=== PATIENT | male | born 1990 | race Caucasian/White ===

== ENCOUNTER → 2018-11-12 | Day surgery (SDC) | payer OTHER ==
[2018-11-09 09:47] LABS: ALANINE AMINOTRANSFERASE 31 IU/L (0-55); ALBUMIN 4.3 g/dL (3.5-5.0); ALBUMIN/GLOBULIN RATIO 1.5 (0.8-2.0); ALKALINE PHOSPHATASE 62 IU/L (40-150); ANION GAP 12.1 mmol/L (8-16); BLOOD UREA NITROGEN 14 mg/dL (7-26); BUN/CREATININE RATIO 12 (6-25); CALCIUM 9.8 mg/dL (8.4-10.2); CARBON DIOXIDE 28 mmol/L (22-29); CHLORIDE 103 mmol/L (98-107); CREATININE, SERUM 1.15 mg/dL (0.72-1.25); EST GLOMERULAR FILTRATION RATE > 60 ML/MIN (60-); GLUCOSE 91 mg/dL (74-118); POTASSIUM 4.1 mmol/L (3.5-5.1); SODIUM 139 mmol/L (136-145)
[2018-11-09 09:51] LABS: BASOPHILS # (AUTO) 0.1 (0.0-0.1); BASOPHILS % 1.3 % (0.0-1.0); EOSINOPHILS # (AUTO) 0.8 (0.0-0.4); EOSINOPHILS % 12.6 % (0.0-6.0); HEMATOCRIT 43.6 % (38.2-49.6); HEMOGLOBIN 15.2 g/dL (14.0-18.0); LYMPHOCYTES # (AUTO) 2.2 (1.0-3.2); LYMPHOCYTES % 35.7 % (18.0-39.1); MEAN CORPUSCULAR HEMOGLOBIN 29.7 pg (28-32); MEAN CORPUSCULAR HGB CONC 34.9 g/dL (31-35); MEAN CORPUSCULAR VOLUME 85.2 fL (81-99); MONOCYTES # (AUTO) 0.6 (0.2-0.8); MONOCYTES % 10.2 % (4.4-11.3); NEUTROPHILS # (AUTO) 2.5 (2.1-6.9); NEUTROPHILS % 39.9 % (38.7-80.0); PLATELET COUNT 260 x10e3/uL (140-360); RED BLOOD COUNT 5.12 x10e6/uL (4.3-5.7); RED CELL DISTRIBUTION WIDTH 11.9 % (11.7-14.4)
[2018-11-12] VITALS (9 sets, daily range): BP systolic 114–134; BP diastolic 57–87
[~2018-11-12] VITALS: Ht 170.2 cm; Wt 77.1 kg
[~2018-11-12] MED LIST: ALPRAZOLAM 0.5 MG TAB ONE; DIPHENHYDRAMINE HCL 25 MG CAP ONE; FENTANYL CITRATE/PF 100MCG/2 ML INJ ONE; FLONASE; HEPARIN SOD/SOD CHLORIDE 2,000 ML ONE; IOPAMIDOL 370 MG/ML 200 ML INFUS..BTL INJ ONE; LIDOCAINE HCL 2% LOCAL 20 ML VIAL ONE; METOPROLOL TARTRATE INJ 1 MG/ML VIAL ONE; MIDAZOLAM HCL 2 MG/2 ML VIAL ONE; SODIUM CHLORIDE 0.9% 1000ML 1,000 ML ONE; VERAPAMIL HCL 2.5 MG/ML 2 ML VIAL ONE; XYZAL5 MG PO
--- OUTSIDE RECORDS SUMMARY | 2018-11-12 09:58 | XMS REPORT | Summary of Care ---
Author Author [facility] Care [facility] Organization [facility] Address Unknown Phone Unavailable Encounter HQ Jess(FIN) [id number] Date(s): 03/26/18 - 03/26/18 [facility] [address] [facility] [address] [place] [address]- Discharge Disposition: Home or Self Care Attending Physician: Elvi Scruggs MD Vital Signs Most recent to 1 oldest [Reference Range]: Height 170.18 cm (03/26/18 12:33 PM) Temperature Oral 98.0 DegF [96.4-99.1 DegF] (03/26/18 12:33 PM) Blood Pressure 130/79 mmHg [90-140/60-90 mmHg] (03/26/18 12:33 PM) Peripheral Pulse 60 bpm Rate [60-100 bpm] (03/26/18 12:33 PM) Weight 75 kg (03/26/18 12:33 PM) Body Mass Index 25.9 m2 (03/26/18 12:33 PM) Problem List Condition Effective Dates Status Health Status Informant Laceration of right Active middle finger(Confirmed) Encounter for Active preventive health examination(Confirme d) Allergies, Adverse Reactions, Alerts No Known Medication Allergies Medications Keflex 500 mg oral capsule 500 mg=1 cap, PO, TID, X 8 day, # 24 cap, 0 Refill(s), Pharmacy: [facility]/pharmacy #[id number] Start Date: 03/26/18 Stop Date: 04/03/18 Status: Completed Results No data available for this section Immunizations Given and Recorded Vaccine Date Status Refusal Reason diphtheria/pertussis, acel/tetanus adult 05/28/15 Given Procedures Procedure Date Related Diagnosis Body Site Status Extraction of wisdom tooth Completed Sinusotomy Completed Tonsillectomy Completed Social History Social History Type Response Substance Abuse Use: None. Exercise Exercise duration: 30. Exercise frequency: 3-4 times/week. Exercise type: Walking, Running, Weight lifting. Employment/School Status: Employed. Work/School description: [employer].. Alcohol Current, Type Beer, Liquor. Frequency: 1-2 times per week. Previous treatment: None. Alcohol use interferes with work or home: No. Drinks more than intended: No. Others hurt by drinking: No. Ready to change: No. Household alcohol concerns: No. Smoking Status Never smoker; Exposure to Tobacco Smoke None; Cigarette Smoking Last 365 Days No; Reg Smoking Cessation Counseling No entered on: 03/26/18 Assessment and Plan No data available for this section
--- OUTSIDE RECORDS SUMMARY | 2018-11-12 09:58 | XMS REPORT | Summary of Care ---
Author Author [facility] [place] Organization [facility] [place] Address Unknown Phone Unavailable Encounter JUAN DANIEL Mercado(TIEN) [id number] Date(s): 03/30/15 - 03/30/15 [facility] [place] [address] [place] [phone] Discharge Disposition: Home Attending Physician: Steven English MD Vital Signs No data available for this section Problem List No data available for this section Allergies, Adverse Reactions, Alerts Substance Reaction Severity Status NKDA Active Medications No data available for this section Results No data available for this section Immunizations No data available for this section Procedures No data available for this section Social History Social History Type Response Substance Abuse Use: None. Exercise Exercise duration: 30. Exercise frequency: 3-4 times/week. Exercise type: Walking, Running, Weight lifting. Alcohol Current, Type Liquor. Frequency: 1-2 times per month. Previous treatment: None. Alcohol use interferes with work or home: No. Drinks more than intended: No. Others hurt by drinking: No. Ready to change: No. Household alcohol concerns: No. Smoking Status Never smoker; Exposure to Tobacco Smoke None; Cigarette Smoking Last 365 Days No; Reg Smoking Cessation Counseling No Assessment and Plan No data available for this section
--- OUTSIDE RECORDS SUMMARY | 2018-11-12 09:58 | XMS REPORT | Summary of Care ---
Author Author [facility] [place] Organization [facility] [place] Address Unknown Phone Unavailable Encounter JUAN DANIEL Mercado(TIEN) [id number] Date(s): 03/23/15 - 03/23/15 [facility] [place] [address] [place] [phone] Discharge Disposition: Home Attending Physician: Steven English [...]
--- OUTSIDE RECORDS SUMMARY | 2018-11-12 09:58 | XMS REPORT | Continuity of Care Document ---
Author Author [facility] Organization [facility] Address Unknown Phone Unavailable Care Team Providers Care Hide Cleaner Name Role Phone [facility] Unavailable Unavailable Problems Problem Status Onset Date Classification Date Reported Comments Source R22.9 - "LOCALIZED SWELLING, MASS AND L" Active 03/16/2015 [facility] Laceration of right middle finger Active Problem 10/14/2018 [facility] Medications Medication Details Route Status Patient Instructions Ordering Provider Order Date Source Cephalexin 500 MG Oral Capsule [Keflex] 500 mg=1 cap, PO, TID, X 8 day, # 24 cap, 0 Refill(s), Pharmacy: [id number]/pharmacy #[id number] No Longer Active 03/26/2018 [facility] Allergies, Adverse Reactions, Alerts Substance Category Reaction Severity Reaction type Status Date Reported Comments Source No Known Medication Allergies Assertion Drug allergy [facility] Immunizations Immunization Date Given Site Status Last Updated Comments Source diphtheria/pertussis, acel/tetanus adult 05/28/2015 Left Deltoid completed [facility] Results No Data Provided for This Section Pathology Reports No Data Provided for This Section Diagnostic Reports Report Value Date Source Scrotal/Testicle US EXAM: US SCROTUM WITH DOPPLER DATE: Mar 30, 2015 09:13:05 AM INDICATION: Right palpable lump in scrotum. COMPARISON: None. TECHNIQUE: Grayscale, color Doppler and spectral Doppler ultrasound images of the scrotum and testicles were obtained. FINDINGS: Testes are normal in size, shape and echotexture without masses. Right testicle measures 5.1 x 2.5 x 3.7 cm. Left testicle measures 4.7 x 2.4 x 3.3 cm. Epididymis measures 14 x 8 x 11 mm on the right and 13 x 9 x 12 mm on the left. A 2 mm cyst seen in the right epididymal head. A small calcific scrotal ana rosa is seen on the right side measuring 6 mm. Blood flow symmetric to both testicles by color-flow Doppler. No bowel containing hernia in the scrotum. Bilateral small hydroceles. IMPRESSION: No testicular mass with normal color Doppler flow bilaterally. Bilateral small hydroceles. The palpable lump in the right scrotum corresponds to a 6 mm mobile calcific scrotal ana rosa. [facility] EXAM: US ABDOMEN SOFT TISSUE DATE: 03/23/2015 at 1622 hours. INDICATION: R22.9 Localized swelling, mass and lump, unspecified. COMPARISON: None. TECHNIQUE: Multiplanar grayscale and color Doppler ultrasound images of the anterior abdominal wall in the region of palpable abnormality FINDINGS: Three palpable nodules in the left anterior abdominal wall correlate with a homogeneously hyperechoic 1.9 x 0.5 x 1.2 cm, a heterogeneously hyperechoic 2.2 x 0.6 x 2.0 cm, and a heterogeneously hyperechoic 1.6 x 0.9 x 2.3 cm structure within the subcutaneous fat. The lesions are well marginated and avascular. No aggressive features are identified. IMPRESSION: 3 palpable nodules in the subcutaneous fat of the anterior abdominal wall likely represent lipomas. 03/23/2015 [facility] Consultation Notes No Data Provided for This Section Discharge Summaries No Data Provided for This Section History and Physicals No Data Provided for This Section Vital Signs Vital Sign Value Date Comments Source Height 170.18 cm 03/26/2018 [facility] BMI Calculated 25.9 03/26/2018 [facility] Weight 75 03/26/2018 [facility] Systolic (mm Hg) 130 03/26/2018 [facility] Diastolic (mm Hg) 79 03/26/2018 [facility] Temperature Oral (F) 98.0 F 03/26/2018 [facility] Heart Rate 60 03/26/2018 [facility] Encounters Location Location Details Encounter Type Encounter Number Reason For Visit Attending Provider ADM Date DC Date Status Source Outpatient [id number] STEVEN ENGLISH 03/23/2015 [facility] [place] [facility] [id number] Steven Egnlish 03/23/2015 03/24/2015 [facility] [place] [facility] [id number] Steven English 03/30/2015 03/31/2015 [facility] Outpatient [id number] STEVEN ENGLISH 05/28/2015 [facility] Outpatient [id number] STEVEN ENGLISH 05/28/2015 [facility] Outpatient [id number] MARIAMA CHRISTIANSON 07/19/2015 [facility] Outpatient [id number] MARIAMA CHRISTIANSON 07/31/2015 [facility] Outpatient [id number] STEVEN ENGLISH 05/01/2016 [facility] Outpatient [id number] STEVEN ENGLISH 02/25/2017 [facility] Outpatient [id number] ELVI RIVER 03/26/2018 [facility] Primary Care [facility] Outpatient [id number] Elvi Carmenates 03/26/2018 03/27/2018 [facility] Procedures Procedure Code Date Perfomer Comments Source Extraction of wisdom tooth 77022732 [facility] Sinusotomy [id number] [facility] Tonsillectomy [id number] [facility] Assessment and Plan No Data Provided for This Section Plan of Care No Data Provided for This Section Social History Social History Date Source Social History TypeResponse Substance Abuse Use: None. Exercise Exercise duration: [...] Days No; Reg Smoking Cessation Counseling No 03/16/2015 [facility] Social History TypeResponse Substance Abuse Use: None. Exercise Exercise duration: 30. Exercise frequency: 3-4 times/week. Exercise type: Walking, Running, Weight lifting. Employment/School Status: Employed. Work/School description: [employer]ER.. Alcohol Current, Type Beer, Liquor. Frequency: 1-2 times per week. Previous treatment: None. Alcohol use interferes with work or home: No. Drinks more than intended: No. Others hurt by drinking: No. Ready to change: No. Household alcohol concerns: No. Smoking Status Never smoker; Exposure to Tobacco Smoke None; Cigarette Smoking Last 365 Days No; Reg Smoking Cessation Counseling No entered on: 03/26/18 03/16/2015 [facility] Family History No Data Provided for This Section Advance Directives No Data Provided for This Section Functional Status No Data Provided for This Section
--- NOTE | 2018-11-12 14:26 | NUR ---
1426 Receive dpt in Rm #9 [id number] Report from Fela PENALOZA. [facility] Rt TR band approach. 12cc to bladder. Back to baseline orientation Resp shallow and regular Abdomen soft and non tender denies necessity to defecate and urinate. Bilateral ppx4 PT/DP left if infusing 100chr NO s/s infiltration DC plans reviewed with pt and has copies of papers and prescription. Ate and tolerated po well. ds/rn
--- NOTE | 2018-11-12 15:00 | NUR ---
1500 TR band air release began with 12cc balloon volume, No gross issues pain pallor pressure or dysrhythmia. Normal neuro vscular function. 1600 Removal air completed No hematoma or oozing Coban dressing with 2x2 and Tegaderm and arm splint applied aware of importance f/o care has copies of dc papers and iv removed w/o s/s infiltration and [id number] dressing in place. Pt escorted to car with as new car driver aware of POC No gross issues Pain pallor pressure or dysrhythmia is new car driver and RN escorted pt to car. Denies CP or SOB Pt had no fix with Natural bridging aware of importance to followup with filing Topral XL prescription fill and to self monitor b/o especially if re symptoms occur and report to MD office. joey/rn
--- NOTE | 2018-11-12 21:20 | Operative Report ---
DATE OF PROCEDURE: 11/12/2018 SURGEON: Kevin Sharma MD CARDIAC HEALTH INFORMATION DIRECTOR PROCEDURE INDICATIONS: Coronary artery disease, abnormal stress test. PROCEDURES PERFORMED: 1. Left heart catheterization, selective coronary angiography, left ventriculography. 2. Deployment of right wrist TR band. COMPLICATIONS: None. RECOMMENDATIONS: Medical therapy including beta vignesh. DESCRIPTION OF PROCEDURE: Access obtained in the right radial artery. A 5-Kosovan sheath was placed. Diagnostic coronary angiogram revealed no angiographic coronary artery disease. 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 LV ejection fraction of 65%. LV end-diastolic pressure of 10. No gradient across aortic valve on pullback. No intervention deemed necessary. Right wrist TR band applied. The patient discharged home same day. Kevin Sharma MD [facility] /[id number]
== END | disposition home or self-care (01) ==
LOC: CATH LAB 09:50
PROVIDERS: ATTEND Internal Medicine Interventional Cardiology
DX: I25.10 Atherosclerotic heart disease of native coronary artery without angina pectoris (principal); R94.39 Abnormal result of other cardiovascular function study; R00.2 Palpitations; Z01.812 Encounter for preprocedural laboratory examination; Z82.49 Family history of ischemic heart disease and other diseases of the circulatory system; Z82.3 Family history of stroke
CPT/HCPCS: 36415; 80053; 85025; 93458; C1769; C1887; J2001; J2250; J7030; Q9967; J3010